=== PATIENT | female | born 1945 | race Caucasian/White ===

== ENCOUNTER 2016-08-21 06:00 | Day surgery (SDC) | payer MEDICARE, BC ==
[2016-08-21] MEDS: Dextrose 5%-Lactated Ringers 1,000 ML IV SCH ×2 (06:44→08:32)
[2016-08-21] MEDS ORDERED: Bupivacaine 0.5% 50 ML MDV ONE (06:47)
[2016-08-21] MEDS ORDERED: Lidocaine 1% with EPINEPHrine 1:100,000 50 ML MDV ONE (06:47)
[2016-08-21] MEDS ORDERED: ceFAZolin 2 GM in Premix Bag 1 BAG IV ONE (07:15)
[2016-08-21] MEDS ORDERED: Propofol 200 MG/20 ML SDV ONE ×2 (07:26→08:10)
[2016-08-21] MEDS ORDERED: Midazolam 1 MG/ML 2 ML SDV ONE (07:27)
[2016-08-21] MEDS ORDERED: fentaNYL 100 MCG/2 ML SDV ONE (07:27)
[2016-08-21 09:51] VITALS: BP 127/66
--- NOTE | 2016-08-22 13:14 | OR ---
DATE OF PROCEDURE: 08/21/2016 PREOPERATIVE DIAGNOSIS: Lipomas of right thigh, right flank, and right shoulder. POSTOPERATIVE DIAGNOSIS: Lipomas of right thigh, right flank, and right shoulder. PROCEDURES: 1. Excision of subcutaneous lipoma, right thigh, (99066). 2. Excision of subfascial lipoma, right flank, (65629). 3. Excision of subfascial lipoma, tip of right shoulder, (67435). ANESTHESIA: Local plus IV sedation. INDICATION FOR PROCEDURE: A 71-year-old presenting with lipomas as listed above. The plan is to proceed with excision. Potential risks including bleeding, infection, cosmetic deformity and such, possible recurrence of the lipomas were all reviewed, and the patient wishes to proceed. DETAILS OF PROCEDURE: The patient was taken to the operating room and placed in a supine position. IV sedation was administered, after which the lipoma of the anterior right thigh was addressed. This area was prepped and draped, and anesthetized with 1% lidocaine mixed with Marcaine. A transversely-oriented incision was then made and carried down through the skin and subcutaneous tissue. This was a fairly superficial lipoma and was easily dissected free. This measured 4 cm. The deeper soft tissues were approximated with some 4-0 Vicryl stitch, and the skin with a 4-0 Prolene stitch. The patient was then placed into a left lateral decubitus position, and the lipomas over the right flank and tip of the right shoulder were prepped and draped. These were both anesthetized with 1% lidocaine mixed with Marcaine. A transverse incision was made over the flank site. This lipoma was in a plane underneath the axillary fascia. Once this was incised, the lipoma was easily delivered. This measured 6 cm in maximal dimension. The deeper soft tissues were approximated with some 4-0 Vicryl stitch, and the skin with a 5-0 Prolene skin stitch. The lipoma over the tip of the right shoulder was then addressed. A loop incision was made in that area. This was also underneath the fascial layer. This was incised and the lipoma was delivered from the field. This measured 5.2 cm. This was closed as per the flank . Dressings were applied on each of the locations. The patient was taken to the recovery room in satisfactory condition. All 3 of the specimens were consistent with a benign lipoma. Catracho Durham MD /[id number]
== END 2016-08-21 10:28 | disposition home or self-care (01) ==
LOC: JP.SDS 06:00
PROVIDERS: ATTEND Surgery
DX: D17.21 Benign lipomatous neoplasm of skin and subcutaneous tissue of right arm (principal); D17.23 Benign lipomatous neoplasm of skin and subcutaneous tissue of right leg; E78.00 Pure hypercholesterolemia, unspecified
CPT/HCPCS: 21933; 23073; 27337; J0690; J2250; J2704; J3010; J7042; 88304

== ENCOUNTER 2023-01-13 07:10 | Day surgery (SDC) | payer MEDICARE, BC ==
[~2023-01-13 07:10] MED LIST: Bupivacaine 0.5% 50 ML MDV ONE; Bupivacaine 0.5%/EPINEPHrine 1:200,000 50 ML MDV ONE; Lidocaine 1% with EPINEPHrine 1:100,000 50 ML MDV ONE; Midazolam 1 MG/ML 2 ML SDV ONE; Propofol 200 MG/20 ML SDV ONE; fentaNYL 100 MCG/2 ML SDV ONE
[2023-01-13] MEDS ORDERED: ceFAZolin 2 GM in Premix Bag 1 BAG IV ONE (08:00)
[2023-01-13] MEDS ORDERED: Dextrose 5%-Lactated Ringers 1,000 ML IV SCH (08:00)
[2023-01-13] MEDS ORDERED: Propofol 200 MG/20 ML SDV ONE (09:29)
[2023-01-13] MEDS ORDERED: HYDROmorphone 2 MG Tab PO PRN (10:33)
[2023-01-13] MEDS ORDERED: Acetaminophen 500 MG Tab PO ONE (11:06)
[2023-01-13 13:26] VITALS: BP 109/50; PULSE 48
== END 2023-01-13 13:50 | disposition home or self-care (01) ==
LOC: JP.SDS 07:10
PROVIDERS: ATTEND Surgery
DX: K40.01 Bilateral inguinal hernia, with obstruction, without gangrene, recurrent (principal); E78.00 Pure hypercholesterolemia, unspecified; Z79.899 Other long term (current) drug therapy; Z98.84 Bariatric surgery status
CPT/HCPCS: 49553; A9270; J0131; J0690; J2250; J2704; J3010; J3490; J7121

== ENCOUNTER 2024-10-08 11:06 | Emergency (ER) | payer MEDICARE, BC ==
[2024-10-08 12:21] LABS: BASOPHILS PERCENT AUTO 0.4 % (0.1-1.3); HEMATOCRIT 36.8 % (34.3-46.0); HEMOGLOBIN 12.1 g/dL (11.2-15.5); IMMATURE GRAN PERCENT AUTO 0.4 % (0.0-0.7); LYMPHOCYTES ABSOLUTE AUTO 0.27 K/uL (0.8-3.3); LYMPHOCYTES PERCENT AUTO 11.4 % (11.4-47.7); MEAN CORPUSCULAR HEMOGLOBIN 30.5 pg (31.6-35.5); MEAN CORPUSCULAR HGB CONC 32.9 g/dL (31.6-35.5); MEAN CORPUSCULAR VOLUME 92.7 fL (81.4-99.0); MONOCYTES ABSOLUTE AUTO 0.11 K/uL (0.20-0.90); MONOCYTES PERCENT AUTO 4.7 % (3.3-12.6); NEUTROPHILS ABSOLUTE AUTO 1.96 K/uL (1.0-7.6); NEUTROPHILS PERCENT AUTO 83.1 % (40.0-78.1); PLATELET COUNT,PLT 88 K/uL (130-375); RED BLOOD CELL COUNT 3.97 M/uL (3.77-5.24); WHITE BLOOD CELL COUNT,WBC 2.4 K/uL (3.2-11.0)
[2024-10-08 12:29] LABS: BASOPHILS ABSOLUTE AUTO 0.01 K/uL (0.00-0.10); IMMATURE GRAN ABSOLUTE AUTO 0.01 K/uL (0.00-0.23)
[2024-10-08 12:44] LABS: ALANINE AMINOTRANSFERASE,ALT 59 U/L (12-78); ALBUMIN 2.9 g/dL (3.4-5.0); ALKALINE PHOSPHATASE 133 U/L (46-116); ASPARTATE AMNIOTRANSFERASE,AST 83 U/L (15-37); BILIRUBIN TOTAL 0.8 mg/dL (0.2-1.0); BLOOD UREA NITROGEN,BUN 16 mg/dL (7-18); CALCIUM 8.6 mg/dL (8.5-10.1); CARBON DIOXIDE,CO2 27 mmol/L (21-32); CHLORIDE,CL 102 mmol/L (100-108); CREATININE 0.7 mg/dL (0.6-1.0); EST CRCL DRUG DOSING (CG) 58.12 mL/min; ESTIMATED GFR 89 mL/min (>60); GLUCOSE RANDOM 104 mg/dL (74-106); POTASSIUM,K 3.6 mmol/L (3.6-5.2); PROTEIN TOTAL,TP 5.9 g/dL (6.4-8.2); SODIUM,NA 135 mmol/L (140-148)
[2024-10-08 12:45] LABS: ANION GAP 9.6 mmol/L (5.0-14.0)
[2024-10-08 12:48] LABS: APPEARANCE,URINE CLOUDY (CLEAR); BILIRUBIN,URINE NEGATIVE (NEGATIVE); COLOR,URINE YELLOW (YELLOW); GLUCOSE,URINE NEGATIVE (NEGATIVE); KETONES,URINE NEGATIVE (NEGATIVE); LEUKOCYTE ESTERASE,URINE TRACE (NEGATIVE); NITRITE,URINE POSITIVE (NEGATIVE); OCCULT BLOOD,URINE LARGE (NEGATIVE); PROTEIN,URINE TRACE mg/dL (NEGATIVE)
[2024-10-08] MEDS: Sodium Chloride 0.9% 1,000 ML IV ONE (12:50)
[2024-10-08 12:54] LABS: AMORPHOUS SEDIMENT,URINE NOT SEEN; BACTERIA,URINE MANY; EPITHELIAL CELLS,URINE NOT SEEN; MUCUS,URINE NOT SEEN
[2024-10-08 14:54] LABS: LYME AB IgG Negative (Negative); LYME AB IgM Negative (Negative)
[2024-10-08] MEDS: cefTRIAXone 1 GM in Sodium Chloride 0.9% 50 ML IV ONE (15:41)
[2024-10-08 16:31] VITALS: BP 146/64; PULSE 63
== END 2024-10-08 17:01 | disposition home or self-care (01) ==
LOC: JP.ED 11:06
DX: R53.1 Weakness (principal); N39.0 Urinary tract infection, site not specified; E78.00 Pure hypercholesterolemia, unspecified; Z79.899 Other long term (current) drug therapy
CPT/HCPCS: 36415; 80053; 81001; 85025; 86618; 87086; 87088; 87186; 87468; 87469; 87484; 87798; 96361; 96365; 99284; J0696; J7030

== ENCOUNTER 2024-12-26 10:43 | Emergency (ER) | payer MEDICARE, BC ==
[2024-12-26] MEDS: Ondansetron 4 MG/2 ML SDV IVPUSH ONE (13:10)
[2024-12-26 14:56] VITALS: BP 118/55; PULSE 55
== END 2024-12-26 15:23 | disposition home or self-care (01) ==
LOC: JP.ED 10:43
DX: R19.7 Diarrhea, unspecified (principal); R11.2 Nausea with vomiting, unspecified; E78.00 Pure hypercholesterolemia, unspecified; Z98.84 Bariatric surgery status; Z87.891 Personal history of nicotine dependence; Z79.899 Other long term (current) drug therapy
CPT/HCPCS: 87046; 87427; 96361; 96374; 99284; J2405; J7030